=== PATIENT | female | born 1995 | race Caucasian/White ===

== ENCOUNTER 2017-06-17 11:21 | Inpatient (IN) ==
[2017-06-17] MEDS ORDERED: LACTATED RINGERS 1,000 ML IV ONE (12:28)
[2017-06-17 12:29] LABS: Apearance,Urine Slightly Hazy (Clear); Bacteria,Urine Occasional /HPF (Few); Bilirubin,Urine Negative (Negative); Blood, Urine Negative (Negative); Glucose,Urine (UA) Negative (Negative); Ketones,Urine 5 mg/dL (Negative); Mucus,Urine Moderate /LPF (Occasional); Nitrite,Urine Negative (Negative); Protein,Urine 30 MG/DL; RBC,Urine 5 /HPF (0-4); Squamous Epithelial Cell,Urine Occasional /HPF (0-10); Urine Color Yellow (Yellow); Urine Specific Gravity 1.013 (1.001-1.035); Urine Urobilinogen < 2.0 EU/DL (0.2-1.0); WBC,Urine 10 /HPF (0-6)
[2017-06-17] MEDS ORDERED: BUTORPHANOL 2 MG/ML VIAL IV ONE (12:30)
[2017-06-17] MEDS ORDERED: ONDANSETRON 4 MG/2 ML VIAL IV ONE (12:30)
[2017-06-17] MEDS ORDERED: BETAMETH SODIUM PHOS/ACETATE 30 MG/5 ML VIAL IM ONE (14:00)
[2017-06-17] MEDS ORDERED: CITRIC ACID/SODIUM CITRATE 30 ML UDCUP PO ONE (14:15)
[2017-06-17] MEDS ORDERED: FAMOTIDINE 20 MG/2 ML VIAL IV ONE (14:15)
[2017-06-17] MEDS ORDERED: OXYTOCIN/LR 20 UNIT/1,000 ML BAG IV ONE ×2 (14:20→16:16)
[2017-06-17] MEDS ORDERED: SODIUM CHLORIDE 0.9% 50 ML IV ONE (14:27)
[2017-06-17] MEDS ORDERED: LACTATED RINGERS 1,000 ML IV SCH ×2 (14:30→16:30)
[2017-06-17 14:38] LABS: Basophils % 0.1 % (0.0-0.8); Eosinophils % 0.2 % (0.00-10.9); Hemoglobin 11.2 GM/DL (12.0-16.0); Immature Granulocytes % 0.5 %; Immature Granulocytes Absolute 0.07 #; Lymphocytes # 1.6 10*3/uL (1.4-4.0); Lymphocytes % 12.4 % (21.3-54.2); Mean Corpuscular HGB Conc 33.9 GM/DL (32-36); Mean Corpuscular Hemoglobin 32 PG (27-34); Mean Corpuscular Volume 92.7 FL (87-102); Mean Platelet Volume 12.3 FL (9.6-12.0); Monocytes # 0.9 10*3/uL (0.11-0.8); Neutrophils # 10.2 10*3/uL (1.4-7.4); Neutrophils % 79.8 % (38.7-73.9); Platelet Count 160 T/CUMM (130-400); Red Blood Count 3.56 MC/CUMM (3.8-5.5); Red Cell Distribution Width 13.8 % (9.3-17.3); White Blood Count 12.8 T/CUMM (4-12)
[2017-06-17 14:49] LABS: PT Patient Result 10.4 SECS; Partial Thromboplastin Time 25.5 SECS (0-40)
[2017-06-17 15:03] LABS: Albumin 2.6 G/DL (3.4-5.0); Bilirubin,Total 0.5 MG/DL (0.2-1.0); Calcium 8.3 MG/DL (8.5-10.1); Osmolality,Calculated 269.8 MOS/KG (273-304); Potassium 3.3 MMOL/L (3.5-5.1); Total Protein 6.2 G/DL (6.4-8.3)
[2017-06-17] MEDS ORDERED: SIMETHICONE CHEW 80 MG TABLET PO PRN (16:16)
[2017-06-17] MEDS ORDERED: ONDANSETRON 4 MG/2 ML VIAL IV PRN (16:16)
[2017-06-17] MEDS ORDERED: MAGNESIUM HYDROXIDE SUSP 30 ML UDCUP PO PRN (16:16)
[2017-06-17] MEDS ORDERED: RHO(D) IMMUNE GLOBULIN 300 MCG SYRINGE IM ONE (16:16)
[2017-06-17] MEDS ORDERED: ACETAMINOPHEN 325 MG TABLET PO PRN (16:16)
[2017-06-17 16:22] LABS: Apearance,Urine Slightly Hazy (Clear); Bilirubin,Urine Negative (Negative); Blood, Urine Small mg/dL (Negative); Glucose,Urine (UA) Negative (Negative); Ketones,Urine 20 mg/dL (Negative); Mucus,Urine Many /LPF (Occasional); Nitrite,Urine Negative (Negative); Protein,Urine 100 MG/DL; RBC,Urine 55 /HPF (0-4); Squamous Epithelial Cell,Urine Occasional /HPF (0-10); Urine Color Yellow (Yellow); Urine Urobilinogen < 2.0 EU/DL (0.2-1.0); WBC,Urine 12 /HPF (0-6)
[2017-06-17] MEDS ORDERED: DEXAMETHASONE 10 MG/1 ML VIAL ONE (16:23)
[2017-06-17] MEDS ORDERED: GLYCOPYRROLATE 0.4 MG/2 ML VIAL ONE (16:24)
[2017-06-17] MEDS ORDERED: MORPHINE 10 MG/10 ML VIAL ONE (16:27)
[2017-06-17] MEDS: diphenhydrAMINE 50 MG/1 ML VIAL IV PRN (18:43)
[2017-06-17] MEDS: DOCUSATE SODIUM 100 MG CAPSULE PO SCH (20:45)
[2017-06-17] MEDS: ceFAZolin 1,000 MG in SYRINGE 1 EACH IV SCH (23:32)
[2017-06-17 23:48] LABS: Basophils % 0.1 % (0.0-0.8); Hematocrit 29.4 VOL% (35.7-47.0); Hemoglobin 9.7 GM/DL (12.0-16.0); Immature Granulocytes % 0.6 %; Immature Granulocytes Absolute 0.08 #; Lymphocytes # 1.2 10*3/uL (1.4-4.0); Lymphocytes % 8.4 % (21.3-54.2); Mean Corpuscular Hemoglobin 31 PG (27-34); Mean Corpuscular Volume 93.3 FL (87-102); Mean Platelet Volume 12.5 FL (9.6-12.0); Monocytes # 0.8 10*3/uL (0.11-0.8); Monocytes % 6.1 % (1.7-12.7); Neutrophils # 11.6 10*3/uL (1.4-7.4); Neutrophils % 84.8 % (38.7-73.9); Platelet Count 141 T/CUMM (130-400); Red Blood Count 3.15 MC/CUMM (3.8-5.5); Red Cell Distribution Width 13.7 % (9.3-17.3); White Blood Count 13.7 T/CUMM (4-12)
[2017-06-18] MEDS: diphenhydrAMINE 50 MG/1 ML VIAL IV PRN (00:03)
[2017-06-18] MEDS: diphenhydrAMINE CAP 25 MG CAPSULE PO PRN ×2 (00:23→16:59)
[2017-06-18] MEDS: oxyCODONE/ACETAMINOPHEN 5-325 MG TABLET PO PRN ×3 (04:22→21:12)
[2017-06-18] MEDS: IBUPROFEN 800 MG TABLET PO PRN (04:22)
[2017-06-18] MEDS: ONDANSETRON 4 MG TABLET PO PRN ×2 (04:44→14:48)
[2017-06-18] MEDS: ceFAZolin 1,000 MG in SYRINGE 1 EACH IV SCH (06:18)
[2017-06-18 07:04] LABS: Basophils % 0.1 % (0.0-0.8); Eosinophils % 0.2 % (0.00-10.9); Hematocrit 30.8 VOL% (35.7-47.0); Hemoglobin 10.5 GM/DL (12.0-16.0); Immature Granulocytes % 0.6 %; Immature Granulocytes Absolute 0.07 #; Lymphocytes # 1.7 10*3/uL (1.4-4.0); Lymphocytes % 14.5 % (21.3-54.2); Mean Corpuscular HGB Conc 34.1 GM/DL (32-36); Mean Corpuscular Hemoglobin 31 PG (27-34); Mean Corpuscular Volume 91.4 FL (87-102); Mean Platelet Volume 12.9 FL (9.6-12.0); Monocytes # 0.9 10*3/uL (0.11-0.8); Monocytes % 7.2 % (1.7-12.7); Neutrophils # 9.2 10*3/uL (1.4-7.4); Neutrophils % 77.4 % (38.7-73.9); Platelet Count 154 T/CUMM (130-400); Red Blood Count 3.37 MC/CUMM (3.8-5.5); Red Cell Distribution Width 13.9 % (9.3-17.3); White Blood Count 11.9 T/CUMM (4-12)
[2017-06-18] MEDS: HydrOXYzine PAMOATE 25 MG CAPSULE PO PRN (09:01)
[2017-06-18] MEDS: DOCUSATE SODIUM 100 MG CAPSULE PO SCH ×2 (11:11→21:12)
[2017-06-18] MEDS: MULTIVITAMIN (PRENATAL) TABLET PO SCH (11:11)
[2017-06-19] MEDS: HydrOXYzine PAMOATE 25 MG CAPSULE PO PRN (00:10)
[2017-06-19] MEDS: oxyCODONE/ACETAMINOPHEN 5-325 MG TABLET PO PRN ×3 (05:55→19:53)
[2017-06-19] MEDS: DOCUSATE SODIUM 100 MG CAPSULE PO SCH ×2 (09:02→20:01)
[2017-06-19] MEDS: MULTIVITAMIN (PRENATAL) TABLET PO SCH (09:02)
[2017-06-19] MEDS: IBUPROFEN 800 MG TABLET PO PRN ×2 (13:59→23:16)
[2017-06-19] MEDS: LABETALOL 200 MG TABLET PO SCH ×2 (17:29→23:11)
[2017-06-20] MEDS: oxyCODONE/ACETAMINOPHEN 5-325 MG TABLET PO PRN ×2 (06:03→15:28)
[2017-06-20 07:20] VITALS: BP 131/70
[2017-06-20] MEDS: MULTIVITAMIN (PRENATAL) TABLET PO SCH (09:08)
[2017-06-20] MEDS: DOCUSATE SODIUM 100 MG CAPSULE PO SCH ×2 (09:08→21:36)
[2017-06-20] MEDS: LABETALOL 200 MG TABLET PO SCH ×2 (09:08→21:37)
[2017-06-20] MEDS: IBUPROFEN 800 MG TABLET PO PRN (09:14)
[2017-06-20] MEDS ORDERED: SKIN HEALING OINT (AQUAPHOR) 50 GM TUBE TOP PRN (15:29)
[2017-06-20] MEDS ORDERED: BISACODYL 5 MG TABLET PO PRN (16:39)
== END 2017-06-20 21:45 | disposition home or self-care (01) | DRG 765 ==
LOC: N.LDOUT 11:21 → N.LD 11:25 → N.OB 18:14
PROVIDERS: ADMIT Obstetrics & Gynecology; ATTEND Obstetrics & Gynecology
PROC: LDCSECT (ICD-10-PCS; 2017-06-17 14:45)

== ENCOUNTER 2022-07-04 20:16 | Inpatient (IN) ==
[2022-07-04] MEDS ORDERED: HYDROmorphone 1 MG/1 ML SYRINGE IV STA ×2 (20:41→23:12)
[2022-07-04] MEDS ORDERED: SODIUM CHLORIDE 0.9% 1,000 ML IV STA (20:41)
[2022-07-04] MEDS ORDERED: ONDANSETRON 4 MG/2 ML VIAL IV STA (20:41)
[2022-07-04 21:24] LABS: Hemoglobin 10.5 GM/DL (12.0-16.0); Red Blood Count 3.78 MC/CUMM (3.8-5.5); White Blood Count 12.8 T/CUMM (4-12)
[2022-07-04 21:25] LABS: Basophils % 0.2 % (0.0-0.8); Eosinophils # 0.2 10*3/uL (0.0-0.87); Eosinophils % 1.4 % (0.00-10.9); Hematocrit 32.5 VOL% (35.7-47.0); Immature Granulocytes % 0.3 %; Immature Granulocytes Absolute 0.04 #; Lymphocytes # 1.1 10*3/uL (1.4-4.0); Lymphocytes % 8.3 % (21.3-54.2); Mean Corpuscular HGB Conc 32.3 GM/DL (32-36); Mean Platelet Volume 11.8 FL (9.6-12.0); Monocytes # 1.3 10*3/uL (0.11-0.8); Neutrophils % 79.8 % (38.7-73.9); Platelet Count 218 T/CUMM (130-400); Red Cell Distribution Width 16.7 % (9.3-17.3)
[2022-07-04 21:38] LABS: Albumin 3.1 G/DL (3.4-5.0); Bilirubin,Total 0.9 MG/DL (0.20-1.00); Calcium 8.8 MG/DL (8.5-10.1); Osmolality,Calculated 274.7 MOS/KG (273-304); Potassium 3.6 MMOL/L (3.5-5.1); Total Protein 6.7 G/DL (6.4-8.2)
[2022-07-04 21:54] LABS: Bacteria,Urine Moderate /HPF (Few); Bilirubin,Urine Negative (Negative); Blood, Urine Small mg/dL (Negative); Glucose,Urine (UA) Negative (Negative); Ketones,Urine Negative (Negative); Mucus,Urine Occasional /LPF (Occasional); Nitrite,Urine Positive (Negative); Protein,Urine 30 mg/dL (Negative); RBC,Urine 24 /HPF (0-4); Squamous Epithelial Cell,Urine Occasional /HPF (0-10); Urine Appearance Slightly Cloudy (Clear); Urine Color Yellow (Yellow); Urine Specific Gravity 1.015 (1.001-1.035); Urine Urobilinogen > 8.0 eU/dL (<2.0)
[2022-07-04] MEDS ORDERED: cefTRIAXone 1,000 MG in SODIUM CHLORIDE 0.9% 100 ML IV STA (22:06)
[2022-07-04] MEDS ORDERED: KETOROLAC 30 MG/1 ML VIAL IV STA (23:12)
[2022-07-04] MEDS ORDERED: diphenhydrAMINE CAP 25 MG CAPSULE PO PRN (23:15)
[2022-07-04] MEDS ORDERED: hydrALAZINE 20 MG/1 ML VIAL IV PRN (23:15)
[2022-07-04] MEDS ORDERED: guaiFENesin/DM ER 600-30 MG TABLET PO PRN (23:15)
[2022-07-04] MEDS ORDERED: ZALEPLON 5 MG CAPSULE PO PRN (23:15)
[2022-07-04] MEDS ORDERED: NICOTINE 21 MG/24 HR PATCH TRANSDERM PRN (23:15)
[2022-07-04] MEDS ORDERED: MORPHINE 2 MG/1 ML SYRINGE IV PRN (23:15)
[2022-07-05] MEDS: SODIUM CHLORIDE 0.9% 1,000 ML IV SCH ×3 (01:15→16:52)
[2022-07-05 04:35] LABS: Basophils % 0.2 % (0.0-0.8); Eosinophils # 0.2 10*3/uL (0.0-0.87); Eosinophils % 1.8 % (0.00-10.9); Hematocrit 29.7 VOL% (35.7-47.0); Hemoglobin 9.6 GM/DL (12.0-16.0); Immature Granulocytes % 0.4 %; Immature Granulocytes Absolute 0.04 #; Lymphocytes # 1.4 10*3/uL (1.4-4.0); Lymphocytes % 13.2 % (21.3-54.2); Mean Corpuscular HGB Conc 32.3 GM/DL (32-36); Mean Corpuscular Volume 87.9 FL (87-102); Mean Platelet Volume 11.8 FL (9.6-12.0); Monocytes # 1.2 10*3/uL (0.11-0.8); Monocytes % 11.6 % (1.7-12.7); Neutrophils % 72.8 % (38.7-73.9); Platelet Count 187 T/CUMM (130-400); Red Blood Count 3.38 MC/CUMM (3.8-5.5); Red Cell Distribution Width 16.6 % (9.3-17.3); White Blood Count 10.4 T/CUMM (4-12)
[2022-07-05 04:56] LABS: Calcium 8.2 MG/DL (8.5-10.1); Osmolality,Calculated 276.4 MOS/KG (273-304); Potassium 3.6 MMOL/L (3.5-5.1)
[2022-07-05 06:02] LABS: Ovalocytes Slight
[2022-07-05 06:03] LABS: Platelet Estimate Adequate; Spherocytes Slight
[2022-07-05] MEDS ORDERED: cefTRIAXone 2,000 MG in SODIUM CHLORIDE 0.9% 100 ML IV SCH (09:00)
[2022-07-05] MEDS ORDERED: cefTRIAXone 1,000 MG in SODIUM CHLORIDE 0.9% 100 ML IV SCH ×2 (09:00→21:00)
[2022-07-05] MEDS: BISACODYL 5 MG TABLET PO SCH (09:32)
[2022-07-05] MEDS: PANTOPRAZOLE 40 MG TABLET PO SCH (09:34)
[2022-07-05] MEDS: KETOROLAC 30 MG/1 ML VIAL IV SCH ×2 (14:38→16:58)
[2022-07-05] MEDS: ONDANSETRON 4 MG/2 ML VIAL IV PRN (19:51)
[2022-07-05] MEDS: ACETAMINOPHEN 325 MG TABLET PO PRN (19:51)
[2022-07-06] MEDS: SODIUM CHLORIDE 0.9% 1,000 ML IV SCH ×3 (01:24→17:55)
[2022-07-06] MEDS: ONDANSETRON 4 MG/2 ML VIAL IV PRN ×3 (05:57→21:11)
[2022-07-06] MEDS: PANTOPRAZOLE 40 MG TABLET PO SCH (09:56)
[2022-07-06] MEDS: BISACODYL 5 MG TABLET PO SCH (09:58)
[2022-07-06] MEDS: cefTRIAXone 2,000 MG in SODIUM CHLORIDE 0.9% 100 ML IV SCH (10:00)
[2022-07-06] MEDS: KETOROLAC 30 MG/1 ML VIAL IV SCH ×2 (11:02→17:41)
[2022-07-06] MEDS: ACETAMINOPHEN 325 MG TABLET PO PRN (14:03)
[2022-07-06] MEDS: TAMSULOSIN 0.4 MG CAPSULE PO SCH (21:10)
[2022-07-06 22:16] LABS: Barbiturates Screen,Urine Negative (Negative); Benzodiazepines Screen,Urine Negative (Negative); Cannabinoid Screen,Urine Negative (Negative); Opiate Screen,Urine Positive (Negative); Phencyclidine Screen,Urine Negative (Negative)
[2022-07-07] MEDS: SODIUM CHLORIDE 0.9% 1,000 ML IV SCH ×3 (01:29→21:54)
[2022-07-07] MEDS: KETOROLAC 30 MG/1 ML VIAL IV SCH ×3 (03:27→12:00)
[2022-07-07 06:00] LABS: Basophils % 0.5 % (0.0-0.8); Eosinophils # 0.3 10*3/uL (0.0-0.87); Eosinophils % 4.7 % (0.00-10.9); Hematocrit 27.1 VOL% (35.7-47.0); Hemoglobin 8.5 GM/DL (12.0-16.0); Immature Granulocytes % 1.4 %; Immature Granulocytes Absolute 0.09 #; Lymphocytes # 1.1 10*3/uL (1.4-4.0); Lymphocytes % 16.8 % (21.3-54.2); Mean Corpuscular HGB Conc 31.4 GM/DL (32-36); Mean Corpuscular Volume 90.3 FL (87-102); Mean Platelet Volume 12.2 FL (9.6-12.0); Monocytes # 0.6 10*3/uL (0.11-0.8); Monocytes % 8.9 % (1.7-12.7); Neutrophils % 67.7 % (38.7-73.9); Platelet Count 194 T/CUMM (130-400); Red Cell Distribution Width 16.8 % (9.3-17.3); White Blood Count 6.62 T/CUMM (4-12)
[2022-07-07 06:19] LABS: Calcium 8.1 MG/DL (8.5-10.1); Osmolality,Calculated 282.1 MOS/KG (273-304); Potassium 3.3 MMOL/L (3.5-5.1)
[2022-07-07 06:24] LABS: Hypochromia Slight; Platelet Estimate Normal
[2022-07-07] MEDS ORDERED: POTASSIUM CHLORIDE 20 MEQ TABLET PO ONE (07:15)
[2022-07-07] MEDS: PANTOPRAZOLE 40 MG TABLET PO SCH (09:35)
[2022-07-07] MEDS: BISACODYL 5 MG TABLET PO SCH (09:36)
[2022-07-07] MEDS: TAMSULOSIN 0.4 MG CAPSULE PO SCH ×2 (09:36→21:52)
[2022-07-07] MEDS: cefTRIAXone 2,000 MG in SODIUM CHLORIDE 0.9% 100 ML IV SCH (09:40)
[2022-07-08] MEDS: SODIUM CHLORIDE 0.9% 1,000 ML IV SCH ×2 (04:58→09:00)
[2022-07-08 05:27] LABS: Basophils # 0.1 10*3/uL (0.0-0.2); Basophils % 0.8 % (0.0-0.8); Eosinophils # 0.3 10*3/uL (0.0-0.87); Eosinophils % 4.8 % (0.00-10.9); Hematocrit 27.7 VOL% (35.7-47.0); Hemoglobin 8.9 GM/DL (12.0-16.0); Immature Granulocytes % 0.3 %; Immature Granulocytes Absolute 0.02 #; Lymphocytes # 1.6 10*3/uL (1.4-4.0); Lymphocytes % 26.1 % (21.3-54.2); Mean Corpuscular HGB Conc 32.1 GM/DL (32-36); Mean Corpuscular Volume 87.9 FL (87-102); Monocytes # 0.6 10*3/uL (0.11-0.8); Monocytes % 9.3 % (1.7-12.7); Neutrophils % 58.7 % (38.7-73.9); Platelet Count 234 T/CUMM (130-400); Red Blood Count 3.15 MC/CUMM (3.8-5.5); Red Cell Distribution Width 16.4 % (9.3-17.3); White Blood Count 6.24 T/CUMM (4-12)
[2022-07-08 05:40] LABS: Calcium 8.2 MG/DL (8.5-10.1); Osmolality,Calculated 280.1 MOS/KG (273-304); Potassium 3.5 MMOL/L (3.5-5.1)
[2022-07-08 07:18] VITALS: BP 148/91
[2022-07-08] MEDS: BISACODYL 5 MG TABLET PO SCH (09:08)
[2022-07-08] MEDS: PANTOPRAZOLE 40 MG TABLET PO SCH (09:08)
[2022-07-08] MEDS: TAMSULOSIN 0.4 MG CAPSULE PO SCH (09:08)
[2022-07-08] MEDS: cefTRIAXone 2,000 MG in SODIUM CHLORIDE 0.9% 100 ML IV SCH (09:08)
== END 2022-07-08 10:03 | disposition home or self-care (01) | DRG 690 ==
LOC: N.ED 20:16 → SUATTDRO 23:15 → N.EDINP 23:15 → N.3E 07-05 10:38
PROVIDERS: ADMIT Hospitalist; ATTEND Internal Medicine